=== PATIENT | female | born 1990 | race African-American/Black ===

== ENCOUNTER → 2017-11-06 | Outpatient (CLI) | payer MEDICAID ==
[~2017-11-06] MED LIST: BALANCED SALT SOLN OPHT IRRIG 15 ML BTL ONE; BRIMONIDINE TARTRATE 0.15% OPHT SOLN 5 ML BTL ONE; HYPROMELLOSE 0.3 % OPTH GEL 10 GM (0.34 FL OZ) TUBE ONE; PILOCARPINE HCL 2% OPHT SOLN 15 ML BTL ONE; PROPARACAINE HCL 0.5% OPHT SOLN 15 ML BTL ONE; prednisoLONE ACETATE 1% OPHT SUSP 5 ML BTL ONE
== END ==
LOC: PHSDC 11:53
PROVIDERS: ATTEND Ophthalmology
DX: H40.032 Anatomical narrow angle, left eye (principal)